=== PATIENT | male | born 1945 | race Caucasian/White ===

== ENCOUNTER 2017-01-11 21:16 | Emergency (ER) | payer MEDICARE, BC ==
[2017-01-11] MEDS ORDERED: OXYMETAZOLINE 0.05% NASL SPRAY 15 ML NASAL STA (22:35)
--- NOTE | 2017-01-11 22:46 | ED ---
ENT HPI - General Chief complaint: ENT Stated complaint: Nose Bleed/40 min Time Seen by Provider: 01/11/17 22:28 Source: patient, RN notes reviewed Mode of arrival: ambulatory Limitations: no limitations - History of Present Illness Initial comments: 71-year-old male presents to the emergency department with a chief complaint of epistaxis. Patient states that his nose started eating tonight. They state that for about 40 minutes. 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 Patient states that he didn't came here. Patient states since he had a nasal clamp he has not had any bleeding. Patient does admit to some congestion recently. Patient denies any fever or chills. Patient denies any use of blood thinners or any history of nosebleeds in the past. Patient states she was concerned with how long the nosebleed occurred so he thought that he should be seen.Patient denies any recent fever, chills, shortness of breath, chest pain, back pain, abdominal pain, nausea vomiting, numbness or tingling, dysuria or hematuria, constipation or diarrhea, headaches or visual changes, or any other current symptoms. - Related Data Home Medications Medication Instructions Recorded Confirmed Ascorbic Acid [Vitamin C] 1,000 mg PO DAILY 01/11/17 01/11/17 Bisoprolol-Hctz 5-6.25 mg [Ziac 1 tab PO DAILY 01/11/17 01/11/17 5-6.25] Cholecalciferol [Vitamin D3] 1,000 unit PO DAILY 01/11/17 01/11/17 Fluticasone Nasal [place] [Flonase 1 spr EA NOSTRIL DAILY PRN 01/11/17 01/11/17 Nasal [place]] Simvastatin [Zocor] 80 mg PO DAILY 01/11/17 01/11/17 Valsartan/Hydrochlorothiazide 1 tab PO DAILY 01/11/17 01/11/17 [Valsartan-Hctz 160-12.5 mg Tab] amLODIPine [Norvasc] 5 mg PO DAILY 01/11/17 01/11/17 Allergies Allergy/AdvReac Type Severity Reaction Status Date / Time Penicillins Allergy Swelling Verified 01/11/17 22:40 Review of Systems ROS Statement: Those systems with pertinent positive or pertinent negative responses have been documented in the HPI. ROS Other: All systems not noted in ROS Statement are negative. Past Medical History Past Medical History: Hypertension History of Any Multi-Drug Resistant Organisms: None Reported Past Surgical History: Hernia Repair Past Psychological History: No Psychological Hx Reported Smoking Status: Never smoker Past Alcohol Use History: Occasional Past Drug Use History: None Reported General Exam Limitations: no limitations General appearance: alert, in no apparent distress Head exam: Present: atraumatic, normocephalic, normal inspection ENT exam: Present: normal oropharynx, mucous membranes moist, other (She does appear to have bleeding at the Tricia box plexus on the left naris) Neck exam: Present: normal inspection. Absent: tenderness, meningismus, lymphadenopathy Respiratory exam: Present: normal lung sounds bilaterally. Absent: respiratory distress, wheezes, rales, rhonchi, stridor Cardiovascular Exam: Present: regular rate, normal rhythm, normal heart sounds. Absent: systolic murmur, diastolic murmur, rubs, gallop, clicks Neurological exam: Present: alert, oriented X3 Psychiatric exam: Present: normal affect, normal mood Skin exam: Present: warm, dry, intact, normal color. Absent: rash Course Vital Signs 01/11/17 22:10 Temperature 98.3 F Pulse Rate 71 Respiratory 20 Rate Blood Pressure 177/92 O2 Sat by Pulse 97 Oximetry Medical Decision Making - Medical Decision Making 71-year-old male presents emergency Department with a chief complaint of epistaxis. At this time patient continuing to have no active bleeding here in the ER. This time we did discuss care for home. Discussed follow-up and return parameters. Discussed all the patient's questions. He stated that he understood and he is agreement plan. This time we will be discharged. Disposition Clinical Impression: Anterior epistaxis Disposition: HOME SELF-CARE Condition: Stable Instructions: Nosebleed (ED) Additional Instructions: Please use medication as discussed. Please follow up with family doctor if symptoms have not improved over the next two days. Please return to the emergency room if your symptoms increase or worsen or for any other concerns. Referrals: Nonstaff,Physician [Primary Care Provider] - 1-2 days Aleksandr Moya MD [STAFF PHYSICIAN] - 1-2 days Time of Disposition: 23:22
[2017-01-12] VITALS: BP 143/79; PULSE 76; RESP 18; TEMP 97.3
== END 2017-01-12 | disposition home or self-care (01) ==
LOC: EC 21:16
DX: R04.0 Epistaxis (principal); I10 Essential (primary) hypertension; Z79.899 Other long term (current) drug therapy; Z88.0 Allergy status to penicillin
CPT/HCPCS: 99283